=== PATIENT | female | born 1995 | race Caucasian/White ===

== ENCOUNTER 2021-01-10 13:20 | Emergency (ER) | payer BC ==
[2021-01-10] MEDS ORDERED: Sodium Chloride 0.9% 10 ML Syringe FLUSH PRN (13:33)
[2021-01-10] MEDS ORDERED: Ondansetron 4 MG/2 ML SDV IV ONE (13:34)
[2021-01-10] MEDS ORDERED: Morphine 4 MG/ML Syringe IVPUSH ONE (13:34)
[2021-01-10] MEDS ORDERED: Lactated Ringers 1,000 ML IV ONE (13:34)
--- NOTE | 2021-01-10 13:41 | EDM.PDOC ---
ED HPI GENERAL MEDICAL PROBLEM - General Chief Complaint: Abdominal Pain Stated Complaint: Abdominal Pain Time Seen by Provider: 01/10/21 13:25 Source of Information: Reports: Patient History Limitations: Reports: No Limitations - History of Present Illness INITIAL COMMENTS - FREE TEXT/NARRATIVE: Patient comes emergency department today from home with concerns of left lower abdomen and pelvis pain. This patient about a month ago had a surgery on her right ovary for a large mass. Since that time she has has persistent left lower quadrant left pelvic pain. It has been constant on a daily basis. Her pain is slowly been getting worse. Over the past couple of days she has had nausea and vomiting she is unable to keep anything down. No fever no chills. No chest pain no shortness of breath or difficulty breathing. No other pain in her abdomen. She does have dysuria without urinary frequency. No burning. No flank pain. No constipation or diarrhea. She does have a history of migraine, generalized anxiety disorder as well as hydrosalpinx for which she had surgery on aprox 1 month ago. - Related Data Allergies Allergy/AdvReac Type Severity Reaction Status Date / Time No Known Allergies Allergy Verified 01/10/21 14:04 Home Meds: Home Meds Gabapentin [Neurontin] 300 mg PO TID PRN 01/10/21 [History] Ketorolac [Toradol] 10 mg PO TID PRN #9 tab 01/10/21 [Rx] Ondansetron [Ondansetron Odt] 4 mg PO TID PRN #12 tab.rapdis 01/10/21 [Rx] Sertraline [Zoloft] 100 mg PO DAILY 01/10/21 [History] Past Medical History HEENT History: Reports: Sinusitis [employer] History: Reports: Other (See Below) Other [employer] History: bleeding cyst on ovary Neurological History: Reports: Headaches, Chronic, Migraines Psychiatric History: Reports: Anxiety, Depression, Panic Attack Endocrine/Metabolic History: Reports: Obesity/BMI 30+ Social & Family History - Living Situation & Occupation Occupation: Student ED ROS GENERAL - Review of Systems Review Of Systems: Comprehensive ROS is negative, except as noted in HPI. ED EXAM, GI/ABD - Physical Exam Exam: See Below Exam Limited By: No Limitations General Appearance: Alert, WD/WN, No Apparent Distress Ears: Normal External Exam Nose: Normal Inspection Throat/Mouth: Normal Inspection Head: Atraumatic, Normocephalic Neck: Normal Inspection, Supple, Non-Tender Respiratory/Chest: No Respiratory Distress, Lungs Clear, Normal Breath Sounds, No Accessory Muscle Use, Chest Non-Tender Cardiovascular: Normal Peripheral Pulses, Regular Rate, Rhythm GI/Abdominal Exam: Normal Bowel Sounds, Soft, Tender (Tenderness very low midline abdomen more in the pelvis. Guarding without rebound. Rest of the abdomen is soft nontender nondistended.) (Female) Exam: Deferred Rectal (Female) Exam: Deferred Back Exam: Normal Inspection. No: CVA Tenderness (L), CVA Tenderness (R) Extremities: Normal Inspection, Normal Range of Motion, No Pedal Edema, Normal Capillary Refill Neurological: Alert, Oriented, Normal Cognition, No Motor/Sensory Deficits Psychiatric: Normal Affect, Normal Mood Skin Exam: Warm, Dry, Intact, Normal Color, No Rash Course - Vital Signs Last Recorded V/S: Last Vital Signs Temp 98 F 01/10/21 13:20 Pulse 98 01/10/21 13:20 Resp 16 01/10/21 13:20 BP 132/79 01/10/21 13:20 Pulse Ox 100 01/10/21 13:20 - Orders/Labs/Meds Orders: Active Orders 24 hr Category Date Time Status Peripheral IV Care [RC] . DIRECTED Care 01/10/21 13:33 Active Pelvis Non OB Comp [US] Stat Exams 01/10/21 13:35 Ordered Transvaginal Non OB [US] Stat Exams 01/10/21 14:35 Ordered Sodium Chloride 0.9% [Saline Flush] Med 01/10/21 13:33 Active 10 ml FLUSH ASDIRECTED PRN Peripheral IV Insertion Adult [OM.PC] Stat Oth 01/10/21 13:33 Ordered Medication Orders Sodium Chloride (Sodium Chloride 0.9% 10 Ml Syringe) 10 ml FLUSH ASDIRECTED PRN PRN Reason: Keep Vein Open Last Admin: 01/10/21 14:03 Dose: 10 ml Documented by: VIRGEN Labs: Laboratory Tests 01/10/21 01/10/21 01/10/21 Range/Units 13:45 13:45 13:45 WBC 7.6 (4.0-10.2) K/uL RBC 3.78 (3.77-5.09) M/uL Hgb 11.7 (11.7-15.5) g/dL Hct 35.2 (34.0-46.0) % MCV 93.1 (84.0-98.0) fL MCH 31.0 (28.2-33.3) pg MCHC 33.2 (31.7-36.0) g/dL RDW 12.7 (11.2-14.1) % Plt Count 410 H D (150-350) K/uL Neut % (Auto) 69.9 (45.0-80.0) % Lymph % (Auto) 22.2 (10.0-50.0) % [place] % (Auto) 5.7 (2.0-14.0) % Eos % (Auto) 2.1 (0.0-5.0) % Baso % (Auto) 0.1 (0.0-2.0) % Neut # (Auto) 5.29 (1.40-7.00) K/uL Lymph # (Auto) 1.68 (0.50-3.50) K/uL [place] # (Auto) 0.43 (0.00-1.00) K/uL Eos # (Auto) 0.16 (0.00-0.50) K/uL Baso # (Auto) 0.01 (0.00-0.20) K/uL Sodium 142 (136-145) mmol/L Potassium 3.7 (3.5-5.1) mmol/L Chloride 106 (98-107) mmol/L Carbon Dioxide 22.5 (21.0-32.0) mmol/L Anion Gap 13.5 (7-15) meq/L BUN 6 L (7-18) mg/dL Creatinine 0.71 (0.51-1.17) mg/dL Est Cr Clr Drug Dosing TNP Estimated GFR (MDRD) > 60 mL/min Glucose 93 (70-99) mg/dL Lactic Acid 0.6 (0.4-2.0) mmol/L Calcium 8.9 (8.5-10.1) mg/dL Total Bilirubin 0.4 (0.2-1.0) mg/dL AST 24 (15-37) U/L ALT 30 (12-78) U/L Alkaline Phosphatase 75 (46-116) IU/L C-Reactive Protein 0.0 (<=0.9) mg/dL Total Protein 7.4 (6.4-8.2) g/dL Albumin 4.2 (3.4-5.0) g/dL Specimen Type Urine Color Urine Appearance Urine pH (5.0-9.0) Ur Specific [place] (1.005-1.030) Urine Protein (NEGATIVE) mg/dL Urine Glucose (UA) (NEGATIVE) mg/dL Urine Ketones (NEGATIVE) mg/dL Urine Occult Blood (NEGATIVE) Urine Nitrite (NEGATIVE) Urine Bilirubin (NEGATIVE) Urine Urobilinogen (0.2-1.0) E.U./dL Ur Leukocyte Esterase (NEGATIVE) Urine RBC /HPF Urine WBC /HPF Ur Epithelial Cells /LPF Urine Bacteria (NONE TO FEW) /HPF Urine HCG, Qual 01/10/21 01/10/21 Range/Units 15:00 15:00 WBC (4.0-10.2) K/uL RBC (3.77-5.09) M/uL Hgb (11.7-15.5) g/dL Hct (34.0-46.0) % MCV (84.0-98.0) fL MCH (28.2-33.3) pg MCHC (31.7-36.0) g/dL RDW (11.2-14.1) % Plt Count (150-350) K/uL Neut % (Auto) (45.0-80.0) % Lymph % (Auto) (10.0-50.0) % [place] % (Auto) (2.0-14.0) % Eos % (Auto) (0.0-5.0) % Baso % (Auto) (0.0-2.0) % Neut # (Auto) (1.40-7.00) K/uL Lymph # (Auto) (0.50-3.50) K/uL [place] # (Auto) (0.00-1.00) K/uL Eos # (Auto) (0.00-0.50) K/uL Baso # (Auto) (0.00-0.20) K/uL Sodium (136-145) mmol/L Potassium (3.5-5.1) mmol/L Chloride (98-107) mmol/L Carbon Dioxide (21.0-32.0) mmol/L Anion Gap (7-15) meq/L BUN (7-18) mg/dL Creatinine (0.51-1.17) mg/dL Est Cr Clr Drug Dosing Estimated GFR (MDRD) mL/min Glucose (70-99) mg/dL Lactic Acid (0.4-2.0) mmol/L Calcium (8.5-10.1) mg/dL Total Bilirubin (0.2-1.0) mg/dL AST (15-37) U/L ALT (12-78) U/L Alkaline Phosphatase (46-116) IU/L C-Reactive Protein (<=0.9) mg/dL Total Protein (6.4-8.2) g/dL Albumin (3.4-5.0) g/dL Specimen Type Urinvoid Urine Color Other Urine Appearance Clear Urine pH 6.0 (5.0-9.0) Ur Specific [place] <= 1.005 (1.005-1.030) Urine Protein Negative (NEGATIVE) mg/dL Urine Glucose (UA) Negative (NEGATIVE) mg/dL Urine Ketones Negative (NEGATIVE) mg/dL Urine Occult Blood Small H (NEGATIVE) Urine Nitrite Negative (NEGATIVE) Urine Bilirubin Negative (NEGATIVE) Urine Urobilinogen 0.2 (0.2-1.0) E.U./dL Ur Leukocyte Esterase Negative (NEGATIVE) Urine RBC Not seen /HPF Urine WBC 0-5 /HPF Ur Epithelial Cells Many H /LPF Urine Bacteria Few (NONE TO FEW) /HPF Urine HCG, Qual Negative Meds: Medications Generic Name Dose Route Start Last Admin Trade Name Freq PRN Reason Stop Dose Admin Sodium Chloride 10 ml 01/10/21 13:33 01/10/21 14:03 Sodium Chloride 0.9% 10 Ml Syringe FLUSH 10 ml ASDIRECTED PRN Administration Keep Vein Open Discontinued Medications Generic Name Dose Route Start Last Admin Trade Name Freq PRN Reason Stop Dose Admin Lactated Ringer's 1,000 mls @ 1,000 mls/hr 01/10/21 13:34 01/10/21 14:02 Ringers, Lactated IV 01/10/21 14:33 1,000 mls/hr .BOLUS ONE Administration Ketorolac Tromethamine 30 mg 01/10/21 15:34 01/10/21 15:39 Ketorolac 30 Mg/Ml Sdv IVPUSH 01/10/21 15:35 30 mg ONETIME ONE Administration Morphine Sulfate 4 mg 01/10/21 13:34 01/10/21 14:03 Morphine 4 Mg/Ml Syringe IVPUSH 01/10/21 13:35 4 mg ONETIME ONE Administration Ondansetron HCl 4 mg 01/10/21 13:34 01/10/21 14:02 Ondansetron 4 Mg/2 Ml Sdv IV 01/10/21 13:35 4 mg ONETIME ONE Administration - Radiology Interpretation Free Text/Narrative:: I did review her CT scan that was completed here on 12/02/2020 that shows a markedly increased size of a cystic mass in the pelvis on the right and extending into the midline into the left slightly. A massive hydrosalpinx or relatively benign cystic neoplastic process would be considerations with this appearance. I also reviewed her pelvic ultrasound that was completed on 01/03/2021. Shows she has cystic change at the left ovary most likely representing complicated or involuting follicular cyst follow-up study is recommended in 2 to 6 weeks for confirmation. Patient very tender with scanning. Prominent endometrial cavity echo may be on the basis of menstrual cycle no definite focal mass seen. Some clots may be present. - Re-Assessments/Exams Free Text/Narrative Re-Assessment/Exam: 01/10/21 13:39 Established labs drawn. Lactated Ringer's 1 L wide open. Zofran morphine pain nausea. 01/10/21 15:52 Patient did have improvement of her symptoms. CBC CMP urinalysis urine are all unremarkable and/or negative. Ultrasound report from the tach after completing shows persistent cyst of the left ovary which is smaller than the one that she had just a couple of weeks ago. No free fluid. I explained to the patient that her laboratory evaluation and her work-up is unremarkable and her continued pain is most likely due to this ovarian cyst on the left side which is actually showing somewhat improvement of pain. I am unsure of why she has any nausea and vomiting at this time but it find anything emergent or urgent at this time for intervention. We will discharge her home. Zofran for nausea ketorolac which is great for pelvic pain. Follow-up with primary care if continued she is comfortable with this plan and her questions are answered. Departure - Departure Time of Disposition: 15:42 Disposition: Home, Self-Care 01 Clinical Impression: Pelvic pain Ovarian cyst Qualifiers: Laterality: left Qualified Code(s): N83.202 - Unspecified ovarian cyst, left side - Discharge Information Prescriptions: Ondansetron [Ondansetron Odt] 4 mg PO TID PRN #12 tab.rapdis PRN Reason: Nausea/Vomiting Ketorolac [Toradol] 10 mg PO TID PRN #9 tab PRN Reason: Pain Instructions: Pelvic Pain, Female, [id number], Ovarian Cyst, [id number], Pain Medicine Instructions, [id number] Referrals: Tracey Kirkland PA-C [Primary Care Provider] - Forms: ED Department Discharge Additional Instructions: Make sure and drink plenty of fluids. Diet as tolerated. No dairy products until symptom free of nausea vomiting. Tylenol as needed for pain. Ketorolac 1 tab three times a day as needed for pain. DO NOT TAKE WITH OTHER NSAIDS, Ibuprofen, Naproxen, Aleve etc. RX sent to pharmacy. Zofran 1 tab every 6 hrs as needed for nausea vomiting. RX sent to the pharmacy. Return to the ED if new or worsening symptoms. Follow up with PCP as needed. Sepsis Event Note (ED) - Focused Exam Vital Signs: Vital Signs Temp Pulse Resp BP Pulse Ox 01/10/21 13:20 98 F 98 16 132/79 100 - My Orders Last 24 Hours: My Active Orders 01/10/21 13:33 Peripheral IV Care [RC] . DIRECTED Sodium Chloride 0.9% [Saline Flush] 10 ml FLUSH ASDIRECTED PRN Peripheral IV Insertion Adult [OM.PC] Stat 01/10/21 13:35 Pelvis Non OB Comp [US] Stat 01/10/21 14:35 Transvaginal Non OB [US] Stat - Assessment/Plan Last 24 Hours: My Active Orders 01/10/21 13:33 Peripheral IV Care [RC] . DIRECTED Sodium Chloride 0.9% [Saline Flush] 10 ml FLUSH ASDIRECTED PRN Peripheral IV Insertion Adult [OM.PC] Stat 01/10/21 13:35 Pelvis Non OB Comp [US] Stat 01/10/21 14:35 Transvaginal Non OB [US] Stat
[2021-01-10 14:11] LABS: ANION GAP 13.5 meq/L (7-15); CHLORIDE,CL 106 mmol/L (98-107); SODIUM,NA 142 mmol/L (136-145)
[2021-01-10 14:15] VITALS: BP 132/79; PULSE 98
[2021-01-10] MEDS ORDERED: Ketorolac 30 MG/ML SDV IVPUSH ONE (15:34)
== END 2021-01-10 15:55 | disposition home or self-care (01) ==
LOC: LL.ED 13:20
DX: N83.202 Unspecified ovarian cyst, left side (principal); E66.9 Obesity, unspecified
CPT/HCPCS: 36415; 76830; 76856; 80053; 81001; 81025; 83605; 85025; 86140; 96374; 96375; 99284; 99284-25; J1885; J2270; J2405; J7120